=== PATIENT | male | born 1990 | race Caucasian/White ===

== ENCOUNTER 2019-12-05 13:50 | Emergency (ER) | payer OTHER ==
[~2019-12-05] VITALS: Ht 170.2 cm; Wt 79.0 kg
--- NOTE | 2019-12-05 14:37 | NUR ---
PT TO ROOM 26 PER PEDIS. PT HERE FOR C/O COUGH X2 YEARS. PT HAS WHEEZING EVERY NIGHT WITH COUGH, HAS BEEN ON MULTIPLE ANTIOBIOTICS BUT NOTHING HELPS. TUESDAY PT DEVELOPED RASH/HIVES TO UPPER VIRGILIO
--- NOTE | 2019-12-05 14:39 | NUR ---
TUESDAY PT DEVELOPED RASH/HIVES ON UPPER CHEST, BACK, HEAD, ARM PITS AND BLE. PT C/O ITCHING WITH RASH, AND STATES DIARRHEA STARTED THE SAME TIME THE RASH CAME. BOTH ARE STILL PRESENT. MD/PA IN TO ASSESS PATIENT. WILL CONTINUE TO MONITOR PATIENT. PT IN GOWN, PLACED ON NIBP AND OXYGEN SAT PROBE, GIVEN WARM BLANKET, AND CALL LIGHT WITH INSTRUCTIONS.
[2019-12-05 16:00] VITALS: BP 133/91
== END 2019-12-05 16:03 | disposition home or self-care (01) ==
LOC: ED 14:33
DX: R05 Cough (principal)
CPT/HCPCS: 71045; 99283; J7512